=== PATIENT | female | born 1965 | race Caucasian/White ===

== ENCOUNTER 2018-02-19 19:20 | Observation (INO) | payer MEDICARE, OTHER ==
[~2018-02-19 19:20] MED LIST: CHLO.12%30 MT; LEVO100T60 PO; VITA100018 PO
--- NOTE | 2018-02-19 19:42 | PD ---
HPI Chief Complaint: Seizure Time Seen by Provider: 19:32 Travel History International Travel<30 days: No Contact w/Intl Traveler<30days: No Traveled to known affect area: No History of Present Illness HPI 52-year-old female presents to the emergency department from shelter by EMS transport after staff witnessed patient to have a 1 minute duration generalized tonic-clonic seizure. Patient presents now postictal. Patient reportedly has history of posttraumatic seizure and takes no anticonvulsant therapy. Patient was hospitalized October 2017 after her seizure. Unknown by review of paperwork that comes with the patient and patient is unable to provide history what traumatic event occurred precipitating her seizure history. Patient does have history of Down syndrome and reportedly is at baseline confused but is able to answer some questions yes no appropriately. Patient's blood sugar per EMS was 99. No report of injury or trauma. Patient also has history of hypothyroidism, dyslipidemia, eczema, and previous eye surgery. PFSH Past Medical History Narrative Medical Down syndrome with a learning disability, posttraumatic seizure disorder, hypothyroidism, hyperlipidemia, eczema; eye surgery; no tobacco use no alcohol use; nursing notes reviewed Cancer: No Diabetes: No Hepatitis: No Thyroid Disease: Yes Past Surgical History Pacemaker: No Social History Alcohol Use: No Tobacco Use: No Allergies-Medications (Allergen,Severity, Reaction): Coded Allergies: latex (Verified Allergy, Unknown, 02/19/18) Reported Meds & Prescriptions Reported Meds & Active Scripts Active Reported Cetirizine (Cetirizine HCl) 10 Mg Tab 10 Mg DAILY Zofran (Ondansetron HCl) 4 Mg Tab 4 Mg PO Q6HR PRN Zantac (Ranitidine HCl) 150 Mg Tab 150 Mg PO BID Tylenol (Acetaminophen) 325 Mg Tab 650 Mg PO Q6H PRN Nystop Topical (Nystatin Topical) 100,000 Unit/Gm Powd 1 Applic TOPICAL TID Nizoral Topical Shampoo (Ketoconazole) 2% Sham 1 Applic TOPICAL Q72H Apply to scalp Levothyroxine (Levothyroxine Sodium) 100 Mcg Tab 100 Mcg PO DAILY Review of Systems ROS Limitations: Clinical Condition, Poor Historian Except as stated in HPI: all other systems reviewed are Neg Physical Exam Narrative GENERAL: Well-developed female no acute distress no respiratory distress opens her eyes to voice/to her name SKIN: Warm and dry. HEAD: Atraumatic. Normocephalic. EYES: Pupils equal and round. No scleral icterus. No injection or drainage. ENT: No nasal bleeding or discharge. Mucous membranes pink and moist. No obvious tongue trauma no perioral blood. NECK: Trachea midline. No JVD. CARDIOVASCULAR: Regular rate and rhythm. RESPIRATORY: No accessory muscle use. Clear to auscultation. Breath sounds equal bilaterally. GASTROINTESTINAL: Abdomen soft, non-tender, nondistended. Hepatic and splenic margins not palpable. MUSCULOSKELETAL: Extremities without clubbing, cyanosis, or edema. No obvious deformities. NEUROLOGICAL: Postictal . No obvious cranial nerve deficits with Down's features. Presently post ictal resting in left lateral decubitus rescue position. Data Data Last Documented VS Vital Signs Date Time Temp Pulse Resp B/P (MAP) Pulse Ox O2 Delivery O2 Flow Rate FiO2 02/19/18 19:46 14 93 Room Air 02/19/18 19:43 97.9 85 98/51 (67) Orders Orders Complete Blood Count With Diff (02/19/18 19:32) Drug Screen, Random Urine (02/19/18 19:32) Electrocardiogram (02/19/18 ) Ct Brain W/O Iv Contrast(Rout) (02/19/18 ) Blood Glucose (02/19/18 19:32) Ecg Monitoring (02/19/18 19:32) Iv Access Insert/Monitor (02/19/18 19:32) Oximetry (02/19/18 19:32) Comprehensive Metabolic Panel (02/19/18 19:32) Sodium Chloride 0.9% Flush (Ns Flush) (02/19/18 19:45) Urinalysis - C+S If Indicated (02/19/18 19:32) Sodium Chlorid 0.9% 500 Ml Inj (Ns 500 M (02/19/18 19:45) Cath For Specimen (02/19/18 19:32) Magnesium (Mg) (02/19/18 19:32) Labs Laboratory Tests Test 02/19/18 19:50 White Blood Count 6.9 TH/MM3 Red Blood Count 4.58 MIL/MM3 Hemoglobin 14.2 GM/DL Hematocrit 42.0 % Mean Corpuscular Volume 91.7 FL Mean Corpuscular Hemoglobin 31.1 PG Mean Corpuscular Hemoglobin Concent 34.0 % Red Cell Distribution Width 13.3 % Platelet Count 237 TH/MM3 Mean Platelet Volume 7.1 FL Neutrophils (%) (Auto) 75.1 % Lymphocytes (%) (Auto) 16.1 % Monocytes (%) (Auto) 7.6 % Eosinophils (%) (Auto) 0.3 % Basophils (%) (Auto) 0.9 % Neutrophils # (Auto) 5.2 TH/MM3 Lymphocytes # (Auto) 1.1 TH/MM3 Monocytes # (Auto) 0.5 TH/MM3 Eosinophils # (Auto) 0.0 TH/MM3 Basophils # (Auto) 0.1 TH/MM3 CBC Comment DIFF FINAL Differential Comment Blood Urea Nitrogen 18 MG/DL Creatinine 0.98 MG/DL Random Glucose 107 MG/DL Total Protein 6.6 GM/DL Albumin 2.9 GM/DL Calcium Level 8.6 MG/DL Magnesium Level 2.3 MG/DL Alkaline Phosphatase 80 U/L Aspartate Amino Transf (AST/SGOT) 30 U/L Alanine Aminotransferase (ALT/SGPT) 37 U/L Total Bilirubin 0.3 MG/DL Sodium Level 142 MEQ/L Potassium Level 3.9 MEQ/L Chloride Level 107 MEQ/L Carbon Dioxide Level 23.8 MEQ/L Anion Gap 11 MEQ/L Estimat Glomerular Filtration Rate 59 ML/MIN [facility] Medical Decision Making Medical Screen Exam Complete: Yes Emergency Medical Condition: Yes Medical Record Reviewed: Yes Interpretation(s) EKG normal sinus rhythm with artifact present short AK interval incomplete right bundle branch block nonspecific ST-T changes anteriorly no acute ST elevation; no comparison EKG Last Impressions Head CT 02/19/18 0000 Signed Impressions: CONCLUSION: 1. No acute intracranial hemorrhage. 2. Bilateral cortical atrophy along with prominence of the lateral ventricles appear to be chronic in nature. CBC & BMP Diagram 02/19/18 19:50 Total Protein 6.6, Albumin 2.9 L, Calcium Level 8.6, Magnesium Level 2.3, Alkaline Phosphatase 80, Aspartate Amino Transf (AST/SGOT) 30, Alanine Aminotransferase (ALT/SGPT) 37, Total Bilirubin 0.3 Vital Signs Date Time Temp Pulse Resp B/P (MAP) Pulse Ox O2 Delivery O2 Flow Rate FiO2 02/19/18 19:46 14 93 Room Air 02/19/18 19:43 97.9 85 16 98/51 (06) 99 Differential Diagnosis Generalized tonic-clonic seizure, syncope, arrhythmia, ICH, TIA, CVA, sepsis, UTI Narrative Course Patient placed on bus monitor; IV access obtained by paramedics prior to arrival; specimens collected and sent for resulting; imaging study EKG ordered. Patient given NS fluid bolus 500 cc 1 dose. @ 21:25 caregiver is at the bedside. According to the caregiver she has been with the patient for the past 12 years until last fall when the patient was identified to have dementia and she could no longer care for her she was transitioned to a shelter. According to the caregiver she is continued to be paid by the family to check on her while she is shelter bound. Caregiver reports that while she was in shelter in question. Patient had seizure 2 after that event but was felt to be isolated she was not placed on anticonvulsant therapy. Subsequently patient developed a urinary tract infection had a one-time seizure at that time was again felt to be isolated was treated for urinary tract infection and has been seizure-free and was transitioned to a new shelter subsequently. Patient has been in her new shelter [facility] for the past 2 months with no seizure activity. Patient today had an isolated seizure and caregiver states she saw her 2 days ago was in her usual state of health no recent fever no recent antibiotic use and no recent injury or fall. Caregiver retraction states she may have had a urinary tract infection in the past 3 weeks she is not certain and may have been on a brief course of antibiotic. Since initial fall patient is pretty much stayed in a wheelchair with decreased ambulation but has been undergoing physical therapy. When caregiver was her primary provider for maintenance and care she was ambulatory as an outpatient. No new lower extremity fall or injury or swelling; being primarily wheelchair dependent has been over the past several months. Diagnosis Primary Impression: Generalized seizure Candice Zayas MD February 19, 2018 19:42
[2018-02-19 19:43] VITALS: BP 98/51; PULSE 85; RESP 16; TEMP 97.9; O2SAT 99
[2018-02-19] MEDS ORDERED: SODIUM CHLORIDE 0.9% FLUSH 10 ML FLUSH IVF PRN (19:45)
[2018-02-19] MEDS ORDERED: SODIUM CHLORID 0.9% 500 ML INJ 500 ML IV ONE (19:45)
[2018-02-19 20:29] LABS: AUTOMATED NEUTROPHIL # 5.2 TH/MM3 (1.8-7.7); BASOPHIL # 0.1 TH/MM3 (0-0.2); BASOPHIL % 0.9 % (0.0-2.0); EOSINOPHIL % 0.3 % (0.0-4.0); HEMOGLOBIN 14.2 GM/DL (11.6-15.3); LYMPH % 16.1 % (9.0-44.0); LYMPHOCYTE # 1.1 TH/MM3 (1.0-4.8); MEAN CELL VOLUME 91.7 FL (80.0-100.0); MEAN CORPUSCULAR HEMOGLOBIN 31.1 PG (27.0-34.0); MEAN PLATELET VOLUME 7.1 FL (7.0-11.0); MONO % 7.6 % (0.0-8.0); MONOCYTE # 0.5 TH/MM3 (0-0.9); NEUT % 75.1 % (16.0-70.0); PLATELET COUNT 237 TH/MM3 (150-450); RED BLOOD COUNT 4.58 MIL/MM3 (4.00-5.30); RED CELL DISTRIBUTION WIDTH 13.3 % (11.6-17.2); WHITE BLOOD COUNT 6.9 TH/MM3 (4.0-11.0)
[2018-02-19] MEDS ORDERED: CETI10 (20:33)
[2018-02-19] MEDS ORDERED: NYST10007 TOPICAL (20:33)
[2018-02-19] MEDS ORDERED: ZOFR4TAB PO (20:33)
[2018-02-19] MEDS ORDERED: TYLE325T PO (20:33)
[2018-02-19] MEDS ORDERED: KETOC2%T TOPICAL (20:33)
[2018-02-19] MEDS ORDERED: LEVO100T5 PO (20:33)
[2018-02-19] MEDS ORDERED: ZANT150T2 PO (20:33)
[2018-02-19 20:46] LABS: ALBUMIN 2.9 GM/DL (3.4-5.0); AST (GOT) 30 U/L (15-37); BICARBONATE 23.8 MEQ/L (21.0-32.0); BLOOD UREA NITROGEN 18 MG/DL (7-18); CALCIUM 8.6 MG/DL (8.5-10.1); CHLORIDE 107 MEQ/L (98-107); CREATININE 0.98 MG/DL (0.50-1.00); GLOMERULAR FILTRATION RATE 59 ML/MIN (>89); GLUCOSE,RANDOM 107 MG/DL (74-106); MAGNESIUM 2.3 MG/DL (1.5-2.5); SODIUM (NA) 142 MEQ/L (136-145)
[2018-02-19 20:48] LABS: ALKALINE PHOSPHATASE 80 U/L (45-117); ALT (GPT) 37 U/L (10-53); TOTAL BILIRUBIN ADULT 0.3 MG/DL (0.2-1.0); TOTAL PROTEIN 6.6 GM/DL (6.4-8.2)
--- NOTE | 2018-02-19 20:59 | RADRPT ---
EXAM DATE: 02/19/2018 8:38 PM EDT AGE/SEX: 52 years / Female INDICATIONS: Seizure CLINICAL DATA: This is the patient's initial encounter. Patient reports that signs and symptoms have been present for 1 day and indicates a pain score of 0/10. MEDICAL/SURGICAL HISTORY: . Seizure, thyroid disease, downs syndrome. None. RADIATION DOSE: 56.35 CTDI (mGy) COMPARISON: No prior [place] exams available for comparison. TECHNIQUE: CT of the head without contrast. Using automated exposure control and adjustment of the mA and/or kV according to patient size, radiation dose was kept as low as reasonably achievable to ob tain optimal diagnostic quality images. FINDINGS: Cerebrum: The ventricles are prominent for age. There is bilateral cortical atrophy. No evidence of midline shift, mass lesion, hemorrhage or acute infarction. No extraaxial fluid collections are seen . Posterior Fossa: The cerebellum and brainstem are intact. The 4th ventricle is midline. The cerebe llopontine angle is unremarkable. Extracranial: The visualized portion of the orbits is intact. Skull: The calvaria is intact. No evidence of skull fracture. CONCLUSION: 1. No acute intracranial hemorrhage. 2. Bilateral cortical atrophy along with prominence of the lateral ventricles appear to be chronic i n nature. Electronically signed by: Gian Murillo MD 02/19/2018 8:58 PM EDT
[2018-02-19 22:03] LABS: AMORPHOUS SEDIMENT, URINE RARE; BILIRUBIN, URINE NEG (NEG); BLOOD, URINE NEG (NEG); GLUCOSE,URINE NEG (NEG); KETONE, URINE NEG (NEG); MUCUS URINE FEW /lpf (OCC); NITRITE,URINE NEG (NEG); PH, URINE 6.5 (5.0-8.5); SQUAMOUS EPITHELIAL CELL URINE 1 /hpf (0-5); URINE COLOR YELLOW (YELLW/STRAW); URINE LEUKOCYTE ESTERASE TRACE (NEG)
[2018-02-19] MEDS ORDERED: GADODIAMIDE PF 287 MG/ML 10 ML VIAL (for RAD MRI) IVCONTRAST ONE (23:11)
[2018-02-20] VITALS (10 sets, daily range): BP systolic 85–168; BP diastolic 50–68; PULSE 66–92; RESP 12–20; TEMP 97.6–99.6; O2SAT 95–98
[2018-02-20] MEDS ORDERED: LORazepam 2 MG/ML VIAL IV PUSH PRN (01:30)
[2018-02-20] MEDS ORDERED: ACETAMINOPHEN 325 MG TAB PO PRN (01:30)
[2018-02-20] MEDS ORDERED: SODIUM CHLORIDE 0.9% FLUSH 10 ML FLUSH IV FLUSH PRN (01:30)
[2018-02-20] MEDS ORDERED: ONDANSETRON ODT 4 MG TAB PO PRN (01:45)
--- NOTE | 2018-02-20 04:13 | HHI.HP ---
[facility] Marco Castillo MD Admission Diagnosis seizure Diagnoses: Travel History International Travel<30 Days: No Contact w/Intl Traveler <30 Da: No Traveled to Known Affected Are: No History of Present Illness 52-year-old female with a past medical history significant for Down syndrome, hyperlipidemia, hypothyroidism and eczema presents to the emergency department from her longterm via EMS transport after staff witnessed a 1 minute long seizure. The seizure was described as a generalized clonic tonic seizure. The patient reportedly has a history of posttraumatic seizure and takes no anticonvulsant therapy. She was hospitalized in October 2017 after her seizure. No formal workup was apparently done. History obtained from ED notes as patient's caregiver was present while the patient was in the emergency department. Patient has very limited verbal communication but is able to answer yes or no to specific questions. Review of Systems Unable to obtain secondary to clinical condition Past Family Social History Past Medical History Down syndrome, hyperlipidemia, hypothyroidism and eczema Past Surgical History Unable to obtain Reported Medications Reported Meds & Active Scripts Active Reported Cetirizine (Cetirizine HCl) 10 Mg Tab 10 Mg DAILY Zofran (Ondansetron HCl) 4 Mg Tab 4 Mg PO Q6HR PRN Zantac (Ranitidine HCl) 150 Mg Tab 150 Mg PO BID Tylenol (Acetaminophen) 325 Mg Tab 650 Mg PO Q6H PRN Nystop Topical (Nystatin Topical) 100,000 Unit/Gm Powd 1 Applic TOPICAL TID Nizoral Topical Shampoo (Ketoconazole) 2% Sham 1 Applic TOPICAL Q72H Apply to scalp Levothyroxine (Levothyroxine Sodium) 100 Mcg Tab 100 Mcg PO DAILY Allergies: Coded Allergies: latex (Verified Allergy, Unknown, 02/19/18) Family History Unable to obtain Social History Lives in a longterm. Physical Exam Vital Signs Vital Signs Date Time Temp Pulse Resp B/P (MAP) Pulse Ox O2 Delivery O2 Flow Rate FiO2 02/20/18 01:36 78 02/20/18 00:08 99.6 92 16 100/61 (74) 95 02/19/18 19:46 14 93 Room Air 02/19/18 19:43 97.9 85 16 98/51 (45) 99 Physical Exam GENERAL: female lying in bed sleeping SKIN: No rashes, ecchymoses or lesions. Cool and dry. HEAD: Atraumatic. Normocephalic. No temporal or scalp tenderness. EYES: Pupils equal round and reactive. Extraocular motions intact. No scleral icterus. No injection or drainage. ENT: Nose without bleeding, purulent drainage or septal hematoma. Throat without erythema, tonsillar hypertrophy or exudate. Uvula midline. Airway patent. NECK: Trachea midline. No JVD or lymphadenopathy. Supple, nontender, no meningeal signs. CARDIOVASCULAR: Regular rate and rhythm without murmurs, gallops, or rubs. RESPIRATORY: Clear to auscultation. Breath sounds equal bilaterally. No wheezes , rales, or rhonchi. GASTROINTESTINAL: Abdomen soft, non-tender, nondistended. No hepato-splenomegaly , or palpable masses. No guarding. MUSCULOSKELETAL: Extremities without clubbing, cyanosis, or edema. No joint tenderness, effusion, or edema noted. No calf tenderness. NEUROLOGICAL: Awake and alert. Cranial nerves II through XII intact. Motor and sensory grossly within normal limits. Normal speech. Laboratory Laboratory Tests Test 02/19/18 19:50 White Blood Count 6.9 Red Blood Count 4.58 Hemoglobin 14.2 Hematocrit 42.0 Mean Corpuscular Volume 91.7 Mean Corpuscular Hemoglobin 31.1 Mean Corpuscular Hemoglobin Concent 34.0 Red Cell Distribution Width 13.3 Platelet Count 237 Mean Platelet Volume 7.1 Neutrophils (%) (Auto) 75.1 Lymphocytes (%) (Auto) 16.1 Monocytes (%) (Auto) 7.6 Eosinophils (%) (Auto) 0.3 Basophils (%) (Auto) 0.9 Neutrophils # (Auto) 5.2 Lymphocytes # (Auto) 1.1 Monocytes # (Auto) 0.5 Eosinophils # (Auto) 0.0 Basophils # (Auto) 0.1 CBC Comment DIFF FINAL Differential Comment Urine Color YELLOW Urine Turbidity HAZY Urine pH 6.5 Urine Specific [place] 1.025 Urine Protein TRACE Urine Glucose (UA) NEG Urine Ketones NEG Urine Occult Blood NEG Urine Nitrite NEG Urine Bilirubin NEG Urine Urobilinogen LESS THAN 2.0 Urine Leukocyte Esterase TRACE Urine RBC LESS THAN 1 Urine WBC 2 Urine Squamous Epithelial Cells 1 Urine Amorphous Sediment RARE Urine Mucus FEW Microscopic Urinalysis Comment CATH-CULT NOT IND Blood Urea Nitrogen 18 Creatinine 0.98 Random Glucose 107 Total Protein 6.6 Albumin 2.9 Calcium Level 8.6 Magnesium Level 2.3 Alkaline Phosphatase 80 Aspartate Amino Transf (AST/SGOT) 30 Alanine Aminotransferase (ALT/SGPT) 37 Total Bilirubin 0.3 Sodium Level 142 Potassium Level 3.9 Chloride Level 107 Carbon Dioxide Level 23.8 Anion Gap 11 Estimat Glomerular Filtration Rate 59 Urine Opiates Screen NEG Urine Barbiturates Screen NEG Urine Amphetamines Screen NEG Urine Benzodiazepines Screen NEG Urine Cocaine Screen NEG Urine Cannabinoids Screen NEG Result Diagram: 02/19/18194902/19/181949 Caprini VTE Risk Assessment Caprini VTE Risk Assessment: No/Low Risk (score <= 1) Caprini Risk Assessment Model Point Value = 1 Point Value = 2 Point Value = 3 Point Value = 5 Age 41-60 Minor surgery BMI > 25 kg/m2 Swollen legs Varicose veins or History of unexplained or recurrent spontaneous Oral contraceptives or hormone replacement Sepsis (< 1 month) Serious lung disease, including pneumonia (< 1 month) Abnormal pulmonary function Acute myocardial infarction Congestive heart failure (< 1 month) History of inflammatory bowel disease Medical patient at bed rest Age 61-74 Arthroscopic surgery Major open surgery (> 45 min) Laparoscopic surgery (> 45 min) Malignancy Confined to bed (> 72 hours) Immobilizing plaster cast Central venous access Age >= 75 History of VTE Family history of VTE Factor V Leiden Prothrombin [id number] Lupus anticoagulant Anticardiolipin antibodies Elevated serum homocysteine Heparin-induced thrombocytopenia Other congenital or acquired thrombophilia Stroke (< 1 month) Elective arthroplasty Hip, pelvis, or leg fracture Acute spinal cord injury (< 1 month) Prophylaxis Regimen Total Risk Factor Score Risk Level Prophylaxis Regimen 0-1 Low Early ambulation 2 Moderate Order ONE of the following: *Sequential Compression Device (SCD) *Heparin 5000 units SQ BID 3-4 Higher Order ONE of the following medications: *Heparin 5000 units SQ TID *Enoxaparin/Lovenox 40 mg SQ daily (WT < 150 kg, CrCl > 30 mL/min) *Enoxaparin/Lovenox 30 mg SQ daily (WT < 150 kg, CrCl > 10-29 mL/min) *Enoxaparin/Lovenox 30 mg SQ BID (WT < 150 kg, CrCl > 30 mL/min) AND/OR *Sequential Compression Device (SCD) 5 or more Highest Order ONE of the following medications: *Heparin 5000 units SQ TID (Preferred with Epidurals) *Enoxaparin/Lovenox 40 mg SQ daily (WT < 150 kg, CrCl > 30 mL/min) *Enoxaparin/Lovenox 30 mg SQ daily (WT < 150 kg, CrCl > 10-29 mL/min) *Enoxaparin/Lovenox 30 mg SQ BID (WT < 150 kg, CrCl > 30 mL/min) AND *Sequential Compression Device (SCD) Assessment and Plan Assessment and Plan Assessment/plan: 1. Witnessed seizure Patient with history of seizure previously diagnosed as posttraumatic -not on anticonvulsant EEG pending Neurology consulted, appreciate recommendations 2. Hyperlipidemia/hypothyroidism/eczema Continue home medications 3. Down syndrome Anticipate return to halfway facility upon discharge FEN Regular diet Electrolytes: Monitor and replete as needed Anel Crabtree MD February 20, 2018 04:13
[2018-02-20] MEDS: LEVOTHYROXINE SODIUM 100 MCG TAB PO SCH (05:40)
[2018-02-20] MEDS: FAMOTIDINE 20 MG TAB PO SCH ×2 (10:07→21:53)
[2018-02-20] MEDS: CETIRIZINE HCL 10 MG TAB PO SCH (10:07)
[2018-02-20] MEDS: SODIUM CHLORIDE 0.9% FLUSH 10 ML FLUSH IV FLUSH SCH ×2 (10:07→21:54)
--- NOTE | 2018-02-20 11:08 | HHI.PR ---
Subjective Remarks Follow-up for seizure. Late entry, patient seen around 8:30 AM this morning. Patient was sound asleep this morning, difficult to awaken, did open eyes briefly, but noncommunicative. Discussed with caregiver, patient usually very drowsy in the mornings. Caregiver reports the patient as seen Dr. Phan in the past. The patient has not been on any antiepileptics. Objective Vitals Vital Signs Date Time Temp Pulse Resp B/P (MAP) Pulse Ox O2 Delivery O2 Flow Rate FiO2 02/20/18 08:22 98.3 78 20 142/65 (90) 96 02/20/18 08:19 66 02/20/18 04:07 99.5 84 16 143/68 (93) 97 02/20/18 01:36 78 02/20/18 00:08 99.6 92 16 100/61 (74) 95 02/19/18 19:46 14 93 Room Air 02/19/18 19:43 97.9 85 16 98/51 (67) 99 I/O 02/19/18 02/19/18 02/19/18 02/20/18 02/20/18 02/20/18 07:00 15:00 23:00 07:00 15:00 23:00 # Voids 1 Result Diagram: 02/19/18 1950 02/19/18 1950 Imaging Last Impressions Head CT 02/19/18 0000 Signed Impressions: CONCLUSION: 1. No acute intracranial hemorrhage. 2. Bilateral cortical atrophy along with prominence of the lateral ventricles appear to be chronic in nature. Objective Remarks GENERAL: Well-nourished, well-developed Down syndrome female patient in NAD. Drowsy. SKIN: Warm and dry. No rash. HEENT: Normocephalic. Atraumatic. Pupils equal and round. Mucous membranes pink and moist. CARDIOVASCULAR: Regular rate and rhythm. No murmur appreciated. RESPIRATORY: No accessory muscle use. Clear to auscultation. Breath sounds equal bilaterally. GASTROINTESTINAL: Abdomen soft, non-tender, nondistended. Normoactive bowel sounds x4. MUSCULOSKELETAL: No obvious deformities. Extremities without clubbing, cyanosis , or edema. NEUROLOGICAL: Awake and alert. No obvious cranial nerve deficits. Motor grossly within normal limits. Moving all extremities spontaneously. Normal speech. Medications and IVs Current Medications Medications (Trade) Dose Ordered Sig/Kriss Route Start Time Stop Time Status Last Admin (NS Flush) 2 ml UNSCH PRN IV FLUSH 02/20/18 01:30 (NS Flush) 2 ml BID IV FLUSH 02/20/18 09:00 02/20/18 10:07 (Ativan Inj) 2 mg Q10M PRN IV PUSH 02/20/18 01:30 (Tylenol) 650 mg Q4H PRN PO 02/20/18 01:30 (ZyrTEC) 10 mg DAILY PO 02/20/18 09:00 02/20/18 10:07 (Synthroid) 100 mcg DAILY@0600 PO 02/20/18 06:00 02/20/18 05:40 (Zofran Odt) 4 mg Q6H PRN PO 02/20/18 01:45 (Pepcid) 20 mg BID PO 02/20/18 09:00 02/20/18 10:07 A/P Assessment and Plan 52-year-old female with a past medical history significant for Down syndrome, hyperlipidemia, hypothyroidism and eczema presents to the emergency department from her longterm via EMS transport after staff witnessed a 1 minute long seizure. Recurrent Seizure: Patient with history of seizure previously diagnosed as posttraumatic -not on anticonvulsants. -Head CT reviewed, no acute findings; shows bilateral cortical atrophy and prominence of lateral ventricles appear chronic in nature -Neuro checks, Seizure precautions -IV Ativan prn seizure -EEG done, preliminary report from project technician shows abnormal, Dr. Phan notified -Neurology consulted, appreciate recommendations Hyperlipidemia/hypothyroidism/eczema/GERD: chronic, stable -Continue home medications including levothyroxine, cetirizine, zantac Down syndrome: chronic -Anticipate return to the [facility] upon discharge DVT Prophylaxis: teds/SCDs Code Status: DNR Discharge Planning Await neurology recommendations and EEG results. Shey Mendez PA-C February 20, 2018 11:08 am
--- NOTE | 2018-02-20 14:23 | MG ---
cc: Sofia Moon MD EEG NUMBER: [id number]. N REFERRING PROVIDER: Nurse practitioner, Neel. ROOM: [facility] INDICATION: With photic stimulation, awake, drowsy, asleep. Admitted with generalized tonic-clonic seizure, history of Down syndrome, posttraumatic seizures. MEDICATIONS: Currently on Zyrtec and Synthroid. DESCRIPTION OF RECORD: There is overall background slowing predominantly between 3 and 3.5 Hz. Symmetrical slowing throughout the recording. Around epoch 20 there are what looks like sharp waves seen bilaterally, which dissipates off and on, but clearly visible, they are sharp waves. There is some muscle artifact as well. Photic stimulation with questionable driving response. IMPRESSION: Slowing of background as well as bilateral sharp wave activity, consistent with probable epileptic activity. Clinical correlation. Sofia Moon MD DF/MASHA , 02:12 PM , 02:23 PM
--- NOTE | 2018-02-20 14:42 | EKG ---
Date Performed: 02/19/2018 Time Performed: 20:12:50 PTAGE: 52 years EKG: Sinus rhythm WITH SHORT NM INTERVAL INCOMPLETE RIGHT BUNDLE BRANCH BLOCK ST DEVIATION AND MODERATE T-WAVE ABNORMA LITY, CONSIDER ANTERIOR ISCHEMIA ABNORMAL ECG NO PREVIOUS TRACING DOCTOR: Bradly Dawson Interpretating Date/Time 02/20/2018 14:41:50
--- NOTE | 2018-02-20 19:43 | MB ---
cc: Galen Phan MD, PhD Galen Phan MD PhD DATE: 02/20/2018 REASON FOR CONSULTATION: Possible seizure. HISTORY OF PRESENT ILLNESS: Ms. Oquendo is a very pleasant 52-year-old female with Down syndrome as well as dementia. About 8 or 9 months ago, apparently she fell striking her head, which caused a concussion. Since the, she has had 3 episodes of loss of consciousness. No definite tonic-clonic activity identified. Apparently, she was evaluated in the past for possible seizures with negative evaluation. She now presents with recurrent episodes of loss of consciousness yesterday while at dinner. No tonic-clonic activity seen. MEDICATIONS: 1. Pepcid. 2. Zyrtec. 3. Synthroid. 4. Zofran, 5. Ativan p.r.n. NEUROLOGIC EXAMINATION: VITAL SIGNS: Blood pressure is 125/67, pulse is 87, respiratory rate 16, temperature 98.2 degrees. Higher cortical functions - She is alert. She is disoriented. She has poor recall. She follows commands. Cranial nerves intact. Motor exam: No focal deficits seen. Reflexes are symmetric. IMAGING STUDIES: CT of the brain: No acute change. LABORATORY DATA: White count is 6900, hemoglobin 14.2, hematocrit 42%, platelet count 237,000. Sodium is 142, potassium 3.9, chloride 107, CO2 of 23.8, BUN is 18, creatinine 0.98, GFR 69, glucose 107, calcium 8.6, AST 30, ALT 37. Tox screen negative. UA: pH is 6.5, specific gravity 1.025. EEG shows bilateral sharp activity in the frontal region. ASSESSMENT: Suspect that these may be seizures. She has risk factors for seizures including concussion, dementia, Down syndrome. Electroencephalogram does show sharp activity. For this reason, would recommend starting her on Keppra 500 mg b.i.d. We will also obtain an MRI brain. Galen Phan MD, PhD KARL/ , 07:32 PM , 07:43 PM
[2018-02-20] MEDS: levETIRAcetam 500 MG TAB PO SCH (21:53)
[2018-02-21 01:02] VITALS: BP 111/72; PULSE 73; RESP 16; TEMP 97.7; O2SAT 98
[2018-02-21 05:59] VITALS: BP 104/60; PULSE 60; RESP 16; TEMP 97.2; O2SAT 95
[2018-02-21 07:25] LABS: AUTOMATED NEUTROPHIL # 2.7 TH/MM3 (1.8-7.7); BASOPHIL # 0.1 TH/MM3 (0-0.2); BASOPHIL % 1.8 % (0.0-2.0); EOSINOPHIL # 0.1 TH/MM3 (0-0.4); EOSINOPHIL % 1.2 % (0.0-4.0); HEMATOCRIT 39.5 % (35.0-46.0); HEMOGLOBIN 13.4 GM/DL (11.6-15.3); LYMPH % 25.9 % (9.0-44.0); LYMPHOCYTE # 1.2 TH/MM3 (1.0-4.8); MEAN CELL VOLUME 91.8 FL (80.0-100.0); MEAN CORPUSCULAR HEMOGLOBIN 31.3 PG (27.0-34.0); MEAN PLATELET VOLUME 7.2 FL (7.0-11.0); MONO % 10.4 % (0.0-8.0); MONOCYTE # 0.5 TH/MM3 (0-0.9); NEUT % 60.7 % (16.0-70.0); PLATELET COUNT 203 TH/MM3 (150-450); RED CELL DISTRIBUTION WIDTH 12.8 % (11.6-17.2); WHITE BLOOD COUNT 4.5 TH/MM3 (4.0-11.0)
[2018-02-21] MEDS: LEVOTHYROXINE SODIUM 100 MCG TAB PO SCH (07:41)
[2018-02-21 07:47] LABS: ALBUMIN 2.6 GM/DL (3.4-5.0); AST (GOT) 25 U/L (15-37); BICARBONATE 23.9 MEQ/L (21.0-32.0); BLOOD UREA NITROGEN 12 MG/DL (7-18); CALCIUM 8.3 MG/DL (8.5-10.1); CHLORIDE 107 MEQ/L (98-107); CREATININE 0.72 MG/DL (0.50-1.00); GLOMERULAR FILTRATION RATE 84 ML/MIN (>89); GLUCOSE,RANDOM 73 MG/DL (74-106); SODIUM (NA) 141 MEQ/L (136-145)
[2018-02-21 07:48] LABS: ALT (GPT) 32 U/L (10-53)
[2018-02-21 07:58] LABS: ALKALINE PHOSPHATASE 76 U/L (45-117); FREE T4 1.43 NG/DL (0.76-1.46); TOTAL BILIRUBIN ADULT 0.5 MG/DL (0.2-1.0); TOTAL PROTEIN 6.3 GM/DL (6.4-8.2)
[2018-02-21 08:16] VITALS: BP 95/51; PULSE 60; RESP 12; TEMP 98.4; O2SAT 98
[2018-02-21] MEDS: CETIRIZINE HCL 10 MG TAB PO SCH (08:20)
[2018-02-21] MEDS: levETIRAcetam 500 MG TAB PO SCH (08:20)
[2018-02-21] MEDS: FAMOTIDINE 20 MG TAB PO SCH (08:20)
--- NOTE | 2018-02-21 08:28 | HHI.PR ---
Subjective Remarks Follow-up for seizure. The patient is sleeping upon my arrival, awakens to stimuli, smiles then goes back to sleep. No reported seizure activity overnight. Vital signs reviewed and stable, slightly low BP this morning. Objective Vitals Vital Signs Date Time Temp Pulse Resp B/P (MAP) Pulse Ox O2 Delivery O2 Flow Rate FiO2 02/21/18 08:16 98.4 60 12 95/51 (66) 98 02/21/18 05:59 97.2 60 16 104/60 (75) 95 02/21/18 01:02 97.7 73 16 111/72 (85) 98 02/20/18 21:44 97.6 84 16 168/60 (96) 98 02/20/18 16:00 87 02/20/18 15:44 99.1 87 16 125/67 (86) 95 02/20/18 12:25 68 02/20/18 11:24 98.2 75 12 85/50 (62) 95 I/O 02/20/18 02/20/18 02/20/18 02/21/18 02/21/18 02/21/18 07:00 15:00 23:00 07:00 15:00 23:00 # Voids 1 2 # Bowel Movements 1 Result Diagram: 02/21/18 0638 02/21/18 0638 Imaging Last Impressions Head CT 02/19/18 0000 Signed Impressions: CONCLUSION: 1. No acute intracranial hemorrhage. 2. Bilateral cortical atrophy along with prominence of the lateral ventricles appear to be chronic in nature. Objective Remarks GENERAL: Well-nourished, well-developed Down syndrome female patient in [facility]. SKIN: Warm and dry. No rash. HEENT: Normocephalic. Atraumatic. Pupils equal and round. Mucous membranes pink and moist. CARDIOVASCULAR: Regular rate and rhythm. No murmur appreciated. RESPIRATORY: No accessory muscle use. Clear to auscultation. Breath sounds equal bilaterally. GASTROINTESTINAL: Abdomen soft, non-tender, nondistended. Normoactive bowel sounds x4. MUSCULOSKELETAL: No obvious deformities. Extremities without clubbing, cyanosis , or edema. NEUROLOGICAL: Awake and alert. No obvious cranial nerve deficits. Motor grossly within normal limits. Moving all extremities spontaneously. Normal speech. Medications and IVs Current Medications Medications (Trade) Dose Ordered Sig/Kriss Route Start Time Stop Time Status Last Admin (NS Flush) 2 ml UNSCH PRN IV FLUSH 02/20/18 01:30 (NS Flush) 2 ml BID IV FLUSH 02/20/18 09:00 02/20/18 21:54 (Ativan Inj) 2 mg Q10M PRN IV PUSH 02/20/18 01:30 (Tylenol) 650 mg Q4H PRN PO 02/20/18 01:30 (ZyrTEC) 10 mg DAILY PO 02/20/18 09:00 02/21/18 08:20 (Synthroid) 100 mcg DAILY@0600 PO 02/20/18 06:00 02/21/18 07:41 (Zofran Odt) 4 mg Q6H PRN PO 02/20/18 01:45 (Pepcid) 20 mg BID PO 02/20/18 09:00 02/21/18 08:20 (Keppra) 500 mg Q12HR PO 02/20/18 21:00 02/21/18 08:20 A/P Assessment and Plan 52-year-old female with a past medical history significant for Down syndrome, hyperlipidemia, hypothyroidism and eczema presents to the emergency department from her halfway via EMS transport after staff witnessed a 1 minute long seizure. Recurrent Seizure: Patient with history of seizure previously diagnosed as posttraumatic -not on anticonvulsants. -Head CT reviewed, no acute findings; shows bilateral cortical atrophy and prominence of lateral ventricles appear chronic in nature -Neuro checks, Seizure precautions -IV Ativan prn seizure -EEG abnormal, shows slowing of background as well as bilateral sharp wave activity, consistent with probable epileptic activity -Neurology consulted, patient started on Keppra 500 mg bid -Brain MRI ordered and pending Hyperlipidemia/hypothyroidism/eczema/GERD: chronic, stable -Continue home medications including levothyroxine, cetirizine, zantac Down syndrome: chronic -Anticipate return to the [facility] upon discharge DVT Prophylaxis: teds/SCDs Code Status: DNR Discharge Planning 0825 hrs: Await brain MRI and neurology clearance. 1700hrs: Steff PARRA reports she discussed with Dr. Moon, Brain MRI with no acute findings, cleared for discharge on Keppra. Will d/c back to SNF. Discharge patient to SNF Condition on discharge: Stable Pureed Diet as tolerated Ad Ani activity, Seizure precautions Rx written: Keppra 500mg po bid Follow-up with primary care physician and neurology Shey Mendez PA-C Feb 21, 2018 08:28
[2018-02-21] MEDS: SODIUM CHLORIDE 0.9% FLUSH 10 ML FLUSH IV FLUSH SCH (09:00)
[2018-02-21] MEDS ORDERED: POTASSIUM CHLORIDE 20 MEQ CONTROLLED RELEASE TAB PO ONE (11:15)
[2018-02-21] MEDS ORDERED: LORazepam 2 MG/ML VIAL IV PUSH ONE (11:30)
[2018-02-21 11:54] VITALS: BP 103/52; PULSE 65; RESP 16; TEMP 96.9; O2SAT 99
--- NOTE | 2018-02-21 14:49 | RADRPT ---
EXAM DATE: 02/21/2018 1:44 PM EDT AGE/SEX: 52 years / Female INDICATIONS: Seizures. CLINICAL DATA: This is the patient's initial encounter. Patient reports that signs and symptoms have been present for 1 day and indicates a pain score of 0/10. MEDICAL/SURGICAL HISTORY: . Dementia. Down syndrome. . Pacemaker. COMPARISON: No prior [facility] exams available for comparison. TECHNIQUE: Multiplanar, multisequence examination of the brain was performed without and with 7 ml Om niscan (gadodiamide) contrast as a single exam dose. FINDINGS: Study is degraded by motion artifact. Cerebrum: There is mild to moderate atrophic change with sulcal prominence. Computer-assisted diffus debi prominent with no evidence of transependymal spread of fluid. No evidence of midline shift, mass lesion, hemorrhage or acute infarction. No extraaxial fluid collections are seen. The pituitary gla nd and suprasellar cistern are normal in configuration. White Matter: No significant signal abnormalities are seen in the white matter. Posterior Fossa: The cerebellum and brainstem are intact. The 4th ventricle is midline. The cerebel lopontine angle is unremarkable. The cerebellar tonsils are normal in position. Diffusion Imaging: No focal areas of restricted diffusion are seen. No evidence of acute infarction . Extracranial: The visualized portions of the orbits and paranasal sinuses are unremarkable. Post Contrast: No abnormal areas of parenchymal or dural enhancement. No evidence of blood-brain ba rrier breakdown. CONCLUSION: 1. Suboptimal examination secondary to diffuse motion artifact. 2. No acute hemorrhage or mass effect. 3. Moderate atrophic change and prominence of the ventricular system which appears chronic. Electronically signed by: Noe Drew MD 02/21/2018 2:48 PM EDT
[2018-02-21] MEDS ORDERED: LEVE500 PO (16:03)
--- NOTE | 2018-02-21 16:03 | HHI.DCPOC ---
Discharge Care Plan Diagnosis: (1) Generalized seizure Goals to Promote Your Health * To prevent worsening of your condition and complications * To maintain your health at the optimal level Directions to Meet Your Goals Take your medications as prescribed Follow your dietary instruction Follow activity as directed Keep your appointments as scheduled Take your immunizations and boosters as scheduled If your symptoms worsen call your PCP, if no PCP go to Urgent Care Center or Emergency Room Smoking is Dangerous to Your Health. Avoid second hand smoke Call the 24-hour hour crisis hotline for domestic abuse at Shey Mendez PA-C Feb 21, 2018 4:03 pm
== END 2018-02-21 18:42 ==
LOC: NEPC 19:20 → NEDA 23:10 → NEPGCP 23:56
PROVIDERS: ADMIT Family Medicine; ATTEND Family Medicine
DX: G40.509 Epileptic seizures related to external causes, not intractable, without status epilepticus (principal); E78.5 Hyperlipidemia, unspecified; E03.9 Hypothyroidism, unspecified; I45.10 Unspecified right bundle-branch block; K21.9 Gastro-esophageal reflux disease without esophagitis; L30.9 Dermatitis, unspecified; G31.9 Degenerative disease of nervous system, unspecified; Q90.9 Down syndrome, unspecified; F81.9 Developmental disorder of scholastic skills, unspecified; F03.90 Unspecified dementia, unspecified severity, without behavioral disturbance, psychotic disturbance, mood disturbance, and anxiety; Z79.899 Other long term (current) drug therapy
CPT/HCPCS: 70450; 70553; 80053; 80307; 81001; 83735; 84439; 84443; 85025; 93005; 95819; 96361; 96374; 99285; A9579; G0378; J2060; J7040; P9612